=== PATIENT | male | born 1950 | race Caucasian/White ===

== ENCOUNTER 2019-07-01 17:19 | Emergency (ER) | payer MEDICARE ==
[~2019-07-01] VITALS: Ht 177.8 cm; Wt 111.1 kg
[2019-07-01 17:46] LABS: BASOPHILS ABSOLUTE AUTO 0.05 K/mm3 (0.00-0.23); BASOPHILS PERCENT AUTO 1 % (0-2); EOSINOPHILS ABSOLUTE AUTO 0.31 K/mm3 (0.00-0.68); EOSINOPHILS PERCENT AUTO 3 % (0-6); Hematocrit 46.2 % (37.0-53.0); Hemoglobin 15.6 g/dL (13.5-17.5); IMMATURE GRAN ABSOLUTE AUTO 0.11 K/mm3 (0.00-0.10); IMMATURE GRAN PERCENT AUTO 1 % (0-1); LYMPHOCYTES ABSOLUTE AUTO 2.53 K/mm3 (0.84-5.20); LYMPHOCYTES PERCENT AUTO 25 % (21-46); MONOCYTES ABSOLUTE AUTO 0.75 K/mm3 (0.16-1.47); MONOCYTES PERCENT AUTO 8 % (4-13); Mean Corpuscular HGB 31.4 pg (26.0-34.0); Mean Corpuscular HGB Conc 33.8 g/dL (31.5-36.5); Mean Corpuscular Volume 93 fL (80-100); Mean Platelet Volume 10.5 fL (9.1-12.4); NEUTROPHILS ABSOLUTE AUTO 6.25 K/mm3 (1.96-9.15); NEUTROPHILS PERCENT AUTO 63 % (41-73); Platelet Count 270 K/mm3 (150-400); RDW Coefficient Variation 14.6 % (11.7-14.2); RDW Standard Deviation 49.9 fL (35.1-46.3); Red Blood Cell Count 4.97 M/mm3 (4.30-5.90)
[2019-07-01] MEDS ORDERED: ALLO100 (17:51)
[2019-07-01] MEDS ORDERED: ATOR10 (17:51)
[2019-07-01] MEDS ORDERED: LANOXIN125 MCG (17:51)
[2019-07-01] MEDS ORDERED: WARF1 (17:51)
[2019-07-01] MEDS ORDERED: VENL25 PO (17:51)
[2019-07-01] MEDS ORDERED: METO25ER (17:51)
[2019-07-01] MEDS ORDERED: Prinivil10 MG (17:52)
[2019-07-01 18:06] LABS: Anion Gap 12 mmol/L (6-16); Blood Urea Nitrogen 36 mg/dL (8-24); Bun/Creatinine Ratio 45.2 (12.0-20.0); CO2, Blood 21 mmol/L (21-32); Calcium, Blood 8.8 mg/dL (8.5-10.1); Chloride, Blood 104 mmol/L (98-108); Glomerular Filtration Rate >60 (60-); Glucose, Blood 136 mg/dL (70-99); Potassium, Blood 3.8 mmol/L (3.5-5.5); Sodium, Blood 137 mmol/L (136-145)
[2019-07-01 18:09] LABS: Prothrombin Time Results 58.9 Sec (9.7-11.5)
[2019-07-01 18:12] LABS: International Normalized Ratio 6.6
[2019-07-01] MEDS ORDERED: HYDR1TAB94 PO (21:31)
== END 2019-07-01 21:20 | disposition home or self-care (01) ==
LOC: ER 17:19
PROVIDERS: Emergency Medicine
DX: S82.832A Other fracture of upper and lower end of left fibula, initial encounter for closed fracture (principal); S01.01XA Laceration without foreign body of scalp, initial encounter; I48.91 Unspecified atrial fibrillation; Z79.01 Long term (current) use of anticoagulants; W18.09XA Striking against other object with subsequent fall, initial encounter
CPT/HCPCS: 12002; 29505; 70450; 73560-LT; 80048; 85025; 85610; 96360-59; 96361-59; 99284-25; J7030

== ENCOUNTER 2019-07-11 10:04 | Emergency (ER) | payer MEDICARE ==
[~2019-07-11] VITALS: Ht 182.9 cm; Wt 156.5 kg
[~2019-07-11 10:04] MED LIST: ALLO100; ATOR10; HYDR1TAB94 PO; LANOXIN125 MCG; METO25ER; Prinivil10 MG; VENL25 PO; WARF1
== END 2019-07-11 11:08 | disposition home or self-care (01) ==
LOC: ER 10:04
DX: S01.01XD Laceration without foreign body of scalp, subsequent encounter (principal); I10 Essential (primary) hypertension; I48.91 Unspecified atrial fibrillation; Z87.891 Personal history of nicotine dependence; Z79.899 Other long term (current) drug therapy; Z79.02 Long term (current) use of antithrombotics/antiplatelets; X58.XXXD Exposure to other specified factors, subsequent encounter